=== PATIENT | female | born 1995 | race African-American/Black ===

== ENCOUNTER 2023-10-06 10:28 | Emergency (ER) | payer OTHER, SELFPAY ==
[2023-10-06 10:39] VITALS: BP 121/68; PULSE 80; RESP 18; TEMP 36.9; O2SAT 100
--- NOTE | 2023-10-06 12:26 | ED.GENADULT ---
HPI - General Adult General Chief complaint: Headache Stated complaint: headache Time Seen by Provider: 10/06/23 11:54 History of Present Illness HPI narrative: 28-year-old female presenting to the emergency department for evaluation for persistent headache this been going on for the last 3 days. Patient does report a prior history of migraines when she was younger. Patient is not migraines as frequently now. Patient states this headache started approximately 3 days ago does have light sensitivity does have increased pressure when leaning forward. Patient has been taking her home medications for migraine but these have not been helping this time. Patient denies current Related Data Allergies Allergy/AdvReac Type Severity Reaction Status Date / Time No Known Allergies Allergy Verified 10/06/23 11:21 Review of Systems Review of Systems: All systems reviewed & are unremarkable except as noted in HPI and below Exam Narrative: APPEARANCE: Well appearing, no pain, no distress, well-nourished. HEAD: normocephalic, atraumatic. EYES: PERRLA/EOMI, conjunctivae clear. NOSE: Normal no drainage THROAT: Pharynx clear, no exudate. NECK: Supple. No adenopathy, no masses. RESPIRATORY: Airway patent, respirations nonlabored. Clear to auscultation bilaterally, no rales, rhonchi, wheezing. CARDIOVASCULAR: Regular rate and rhythm without murmurs rubs or gallops. ABDOMINAL: Soft, nontender, nondistended, normal bowel sounds MUSCULOSKELETAL: Moves all extremities. Strength/ROM intact, No edema, No calf tenderness. NEURO: Alert. Cranial nerves II through XII intact. grossly intact, negative Romberg, normal for tobacco tandem gait, normal single leg stand SKIN: Warm, dry. Normal Color Course Vital Signs Vital signs: Vital Signs Temperature 98.5 F 10/06/23 10:39 Pulse Rate 80 10/06/23 10:39 Respiratory Rate 18 10/06/23 10:39 Blood Pressure 121/68 10/06/23 10:39 Pulse Oximetry 100 10/06/23 10:39 Oxygen Delivery Room Air 10/06/23 10:39 Temperature 98.5 F 10/06/23 10:39 Pulse Rate 80 10/06/23 10:39 Respiratory Rate 18 10/06/23 10:39 Blood Pressure 121/68 10/06/23 10:39 Pulse Oximetry 100 10/06/23 10:39 Oxygen Delivery Room Air 10/06/23 10:39 Medical Decision Making MDM Narrative Medical decision making narrative: 28-year-old female presenting to the emergency department for evaluation for headache. Patient was treated with IV Toradol, IV fluids, IV Benadryl and IV Compazine. On re-evaluation patient states that her headache is resolved and patient is resting comfortably. Differential Diagnosis Differential Diagnosis: sinusitis, migraine, acute headache Vital Signs Vital Signs: Vital Signs Temperature 98.5 F 10/06/23 10:39 Pulse Rate 80 10/06/23 10:39 Respiratory Rate 18 10/06/23 10:39 Blood Pressure 121/68 10/06/23 10:39 Pulse Oximetry 100 10/06/23 10:39 Oxygen Delivery Room Air 10/06/23 10:39 Temperature 98.5 F 10/06/23 10:39 Pulse Rate 80 10/06/23 10:39 Respiratory Rate 18 10/06/23 10:39 Blood Pressure 121/68 10/06/23 10:39 Pulse Oximetry 100 10/06/23 10:39 Oxygen Delivery Room Air 10/06/23 10:39 Discharge Plan Discharge Clinical Impression: Migraine Patient Disposition: Home, Self-Care Condition: Stable Instructions: Antibiotic Form, Acute Headache (ED) Additional Instructions: Drink plenty of fluids. Have close follow-up with your primary care physician. If you have any worsening symptoms please call or return to the emergency department. Follow-up/Referrals: UNKNOWN,DOCTOR [Primary Care Provider] -
[2023-10-06] MEDS: SODIUM CHLORIDE 0.9% IV 1,000 ML 999 ML IV CONT (12:40)
[2023-10-06] MEDS: diphenhydrAMINE HCl INJ 50 MG/ML VIAL 25 MG IV PUSH (12:41)
[2023-10-06] MEDS: KETOROLAC 15 MG/ML VIAL (*BKC) IV PUSH (12:41)
[2023-10-06] MEDS: PROCHLORPERAZINE EDISYLATE 10 MG/2 ML VIAL IV PUSH (12:41)
== END 2023-10-06 13:46 | disposition home or self-care (01) ==
PROVIDERS: Emergency Provider Emergency Medicine
DX: G43.909 Migraine, unspecified, not intractable, without status migrainosus (principal)
CPT/HCPCS: 96361; 96374; 96375; 99284; J0780; J1200; J1885; J7030